=== PATIENT | female | born 1990 | race African-American/Black ===

== ENCOUNTER 2020-01-04 00:31 | Inpatient (IN) | payer BC ==
[2020-01-04] MEDS ORDERED: HYDROcodone/Acetaminophen 5/325 mg Tablet PO PRN (00:49)
[2020-01-04] MEDS ORDERED: Butorphanol Tartrate 1 MG/ML VIAL SLOW IVP PRN (00:49)
[2020-01-04] MEDS ORDERED: Ibuprofen 800 MG TAB PO PRN (00:49)
[2020-01-04] MEDS ORDERED: Methylergonovine 0.2 MG/ML VIAL IM PRN (00:49)
[2020-01-04] MEDS ORDERED: Ondansetron PF 4 MG/2 ML Vial IVP PRN ×2 (00:49→20:00)
[2020-01-04] MEDS ORDERED: Promethazine HCl 25 MG/ML VIAL IM PRN ×2 (00:49→20:00)
[2020-01-04] MEDS ORDERED: Carboprost 250 MCG/ML AMP IM PRN (00:49)
[2020-01-04] MEDS ORDERED: NS w/ Oxytocin 10 units 500 ML IV SCH (00:49)
[2020-01-04] MEDS ORDERED: Lidocaine 1% (PF) 30 ML VIAL SC PRN (00:49)
[2020-01-04] MEDS ORDERED: Misoprostol 200 MCG TAB PR PRN (00:49)
[2020-01-04] MEDS ORDERED: Diphenoxylate HCl/Atropine Tablet PO PRN (00:49)
[2020-01-04] MEDS ORDERED: hydrALAZINE 20 MG/ML VIAL SLOW IVP PRN (00:49)
[2020-01-04] MEDS: Lactated Ringer's 1,000 ML IV SCH ×4 (01:05→20:33)
[2020-01-04 01:13] VITALS: BMI 31.3
[2020-01-04 01:17] LABS: Hemoglobin 12.1 g/dL (12.0-16.0); Mean Corpuscular Hemoglobin 30.3 pg (27.0-31.0); Mean Corpuscular Volume 91.8 fL (78.0-98.0); Mean Platelet Volume 6.9 fL (7.4-10.4); Platelet Count 217 thou/uL (130-400); RBC Distribution Width 12.6 % (11.5-14.5); Red Blood Cell (RBC) Count 4.01 mill/uL (4.20-5.40); White Blood Cell (WBC) Count 7.1 thou/uL (4.8-10.8)
[2020-01-04] MEDS: NS w/ Oxytocin 10 units 500 ML IV SCH ×2 (01:26→20:53)
[2020-01-04] MEDS: Misoprostol 100 MCG TAB PO SCH ×3 (01:26→10:44)
[2020-01-04 01:56] LABS: HBSAg Index 0.19 S/CO (0-0.99); Hep B Surf Ag Non-Reactive S/CO (NonReactive)
[2020-01-04 03:13] LABS: Syphilis Antibody Nonreactive (Nonreactive); Syphilis Antibody Index 0.06 S/CO (<1.00 Non-Reactive)
[2020-01-04] MEDS ORDERED: Misoprostol 100 MCG TAB VAG SCH (18:02)
[2020-01-04] MEDS ORDERED: Fentanyl 4 mcg/Bup 0.1% Cadd 100 ML ONE (19:07)
[2020-01-04] MEDS ORDERED: Ondansetron PF 4 MG/2 ML Vial ONE (19:45)
[2020-01-04] MEDS ORDERED: Communication Order-Pharmacy FS SCH (20:00)
[2020-01-04] MEDS ORDERED: Naloxone HCl 0.4 mg/ml Vial IVP PRN ×2 (20:00)
[2020-01-04] MEDS ORDERED: EPHEDRINE 25 MG/5 ML SYRINGE SLOW IVP PRN (20:00)
[2020-01-04] MEDS ORDERED: Ondansetron PF 4 MG/2 ML Vial IVP SCH (20:00)
[2020-01-04] MEDS ORDERED: Acetaminophen 325 MG TAB PO PRN (20:00)
[2020-01-04] MEDS ORDERED: Fentanyl 4 mcg/Bupivacaine 0.1% Cassette 100 ML EPIDURAL SCH (20:00)
[2020-01-04] MEDS ORDERED: Lactated Ringer's 500 ML IV PRN (20:00)
[2020-01-04] MEDS ORDERED: diphenhydrAMINE 50 MG/ML VIAL IVP PRN (20:00)
[2020-01-04] MEDS ORDERED: NS w/ Oxytocin 10 units 500 ML ONE (20:48)
[2020-01-04] MEDS ORDERED: Lidocaine 1% (PF) 30 ML VIAL ONE (22:47)
[2020-01-04] MEDS ORDERED: NS / Oxytocin 40 units/1000ml 1,000 ML ONE (22:48)
[2020-01-04] MEDS: NS / Oxytocin 40 units/1000ml 1,000 ML IV PRN (23:15)
[2020-01-05] MEDS ORDERED: NS / Oxytocin 40 units/1000ml 1,000 ML ONE (00:23)
[2020-01-05] MEDS: NS / Oxytocin 40 units/1000ml 1,000 ML IV PRN (00:26)
[2020-01-05] MEDS ORDERED: Promethazine HCl 25 MG/ML VIAL IM PRN (01:55)
[2020-01-05] MEDS ORDERED: diphenhydrAMINE 25 MG CAP PO PRN (01:55)
[2020-01-05] MEDS ORDERED: Ondansetron PF 4 MG/2 ML Vial IVP PRN (01:55)
[2020-01-05] MEDS ORDERED: hydrALAZINE 20 MG/ML VIAL SLOW IVP PRN (01:55)
[2020-01-05] MEDS ORDERED: HYDROcodone/Acetaminophen 5/325 mg Tablet PO PRN ×2 (01:55)
[2020-01-05] MEDS ORDERED: Preparation H Ointment 28 GM TUBE PR PRN (01:55)
[2020-01-05] MEDS ORDERED: Lanolin Ointment 7 GM TUBE TOP PRN (01:55)
[2020-01-05] MEDS ORDERED: NS / Oxytocin 40 units/1000ml 1,000 ML IV SCH (01:55)
[2020-01-05] MEDS ORDERED: Bisacodyl 10 MG SUPP PR PRN (01:55)
[2020-01-05] MEDS ORDERED: Milk Of Magnesia 30 ML UDCUP PO PRN (01:55)
[2020-01-05 06:14] LABS: Mean Corpuscular HGB CONC 33.4 g/dL (32.0-36.0); Mean Corpuscular Hemoglobin 30.2 pg (27.0-31.0); Mean Corpuscular Volume 90.5 fL (78.0-98.0); Platelet Count 189 thou/uL (130-400); RBC Distribution Width 12.6 % (11.5-14.5); Red Blood Cell (RBC) Count 3.98 mill/uL (4.20-5.40)
[2020-01-05] MEDS: Ibuprofen 800 MG TAB PO PRN ×3 (06:25→21:46)
[2020-01-05] MEDS: Ferrous Sulfate 325 MG TAB PO SCH ×2 (08:02→19:40)
[2020-01-05] MEDS: Docusate Calcium (SURFAK) 240 MG CAP PO SCH ×2 (08:21→21:46)
[2020-01-05] MEDS ORDERED: Adacel (T-DAP) 0.5 ML SYRINGE IM ONE (09:00)
[2020-01-05] MEDS ORDERED: Bupivacaine 0.25% HCL 30 ML VIAL ONE (12:08)
[2020-01-06] MEDS: Ibuprofen 800 MG TAB PO PRN ×2 (05:36→15:03)
[2020-01-06] MEDS: Ferrous Sulfate 325 MG TAB PO SCH (08:41)
[2020-01-06] MEDS: Docusate Calcium (SURFAK) 240 MG CAP PO SCH (08:41)
[2020-01-06 11:55] VITALS: BP 125/71; TEMP 99.2
== END 2020-01-06 16:50 | disposition home or self-care (01) | DRG 807 ==
LOC: L&D 00:31 → UNDODISIN 12:25 → 3SE 01-05 02:08
PROVIDERS: ADMIT Family Medicine; ATTEND Family Medicine
PROC: 10E0XZZ Delivery of Products of Conception, External Approach (ICD-10-PCS; principal; 2020-01-04)
PROC: 10907ZC Drainage of Amniotic Fluid, Therapeutic from Products of Conception, Via Natural or Artificial Opening (ICD-10-PCS; 2020-01-04)
PROC: 3E0P7VZ Introduction of Hormone into Female Reproductive, Via Natural or Artificial Opening (ICD-10-PCS; 2020-01-04)
DX: O80 Encounter for full-term uncomplicated delivery (principal); Z37.0 Single live birth; Z3A.39 39 weeks gestation of pregnancy
CPT/HCPCS: 36415; 51702; 76815; 85027; 86780; 86850; 86900; 86901; 87340; J2001; J2405; J2590; S0020